=== PATIENT | female | born 1975 | race Caucasian/White ===

== ENCOUNTER 2023-07-01 10:29 | Outpatient (AMB) | payer MEDICARE, MEDICAID, SELFPAY ==
--- NOTE | 2023-07-01 10:50 | HO.SPINEOV ---
Intake Intake Visit Reasons: degenerative disc Intake Note: Mrs. Pierson is here today c/o low back pain. MRI done @ [facility]/did not bring disc. Director Learning Required: No Assessment & Plan Assessment & Plan (1) Back pain: Code(s): M54.9 - Dorsalgia, unspecified Plan Dear Andree, Thank you for referring Mrs Pierson to our office today. She is a very nice 48-year-old female who presents to the office today with about a 9 month to 1 year history of pain in the left side of her low back which gives her feelings of cramping and tingling at night. The symptoms can also be aggravated with activity. She has a very large property and has had a lot of difficulty keeping up with activities in her garden and other long related work. The patient has done physical therapy now for few months, she has been taking Tylenol. She has not tried Motrin yet. The pain down her leg seems to be most aggravated at nighttime. There is no trauma or particular event that led to the symptoms a just sort of started slowly and began from there. She had seen a neurosurgeon in the [facility] who told her there was nothing wrong with her. PMH: Bipolar, GERD, anxiety, left ear problems Social hx: She is a smoker 1 pack per day Medications: Abilify, Prozac, Topamax, Tylenol Allergies: Ceclor Physical exam: Strength in gait are normal, reflexes 3+ and symmetric. ELAINE testing negative. Imaging review: No MRI to review Impression: 48-year-old female presents to the office today for 9 months to 1 year history of back pain on the left lower back, which will at times radiate down her legs. Seems to be aggravated with activity and seems to be particularly worse at night. I do not have any imaging to review today. According to the patient, the report shows 3 herniated disc. I reassured her that often the radiology reports are much worse than what the actual clinical picture is and that I will have my ward secretary get a copy of the disc and we can speak over the phone once I see the results and determine if there is anything surgical. Thank you for allowing us to care for your patient. The total time spent with this visit with this patient was 30 minutes reviewing history, physical exam, no imaging to review, and implementation of treatment plan or further diagnostic testing Elian Calixto MD,PhD [facility] Coding Level of Care Code New Pt Level 3 (82536) Diagnoses Back pain M54.9
== END 2023-07-01 11:16 | disposition home or self-care (01) ==
PROVIDERS: PCP Nurse Practitioner Family; Referring Provider Nurse Practitioner Family; Visit Provider Physician Assistant
DX: M54.9 Dorsalgia, unspecified (principal)
CPT/HCPCS: 99203

== ENCOUNTER → 2023-07-01 10:29 | Outpatient (BNVA) | payer MEDICARE, MEDICAID, SELFPAY | PROVIDERS: PCP Nurse Practitioner Family; Visit Provider Physician Assistant | DX: M54.9 Dorsalgia, unspecified (principal) | CPT/HCPCS: 99202 ==

== ENCOUNTER 2023-07-08 15:23 | Outpatient (AMB) | payer MEDICARE, MEDICAID, SELFPAY ==
--- NOTE | 2023-07-08 15:47 | A.SPINEOV_ITS ---
Intake Intake Visit Reasons: MRI review Intake Note: Mrs. Pierson is here today to review her MRI results. 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 Please see my previous note for the specifics of her symptoms. The MRI that she had done just a few months ago in the [place] years does indeed show 3 degenerative discs, with fairly significant collapse of the L5-S1 disc with edema in both the L5 and S1 endplates. I suspect this is where her pain could be coming from. Obviously there is no guarantee as there are other degenerative discs but I think this is possibly the source. We went through the natural history of degenerative disc disease as well as surgical indications. At this time her pain is not severe enough that she would necessitate surgery. However, down the road things change would be happy to see her back and rediscuss options if her quality of life continues to suffer. Total amount of time spent in this visit was 20 minutes in discussion of sympt oms, lumbar MRI imaging results and subsequent plan of care Elian Calixto MD,PhD [facility] Coding Level of Care Code Est Pt Level 3 (64037) Diagnoses Back pain M54.9
== END 2023-07-08 16:05 | disposition home or self-care (01) ==
PROVIDERS: PCP Nurse Practitioner Family; Visit Provider Physician Assistant
DX: M54.9 Dorsalgia, unspecified (principal)
CPT/HCPCS: 99213

== ENCOUNTER → 2023-07-08 15:23 | Outpatient (BNVA) | payer MEDICARE, MEDICAID, SELFPAY | PROVIDERS: PCP Nurse Practitioner Family; Visit Provider Physician Assistant | DX: M54.9 Dorsalgia, unspecified (principal) | CPT/HCPCS: 99212 ==